=== PATIENT | male | born 1945 | race American Indian/Alaskan Native ===

== ENCOUNTER 2018-04-26 14:02 | Emergency (ER) | payer MEDICARE ==
[2018-04-26 14:20] VITALS: BP 145/89
--- NOTE | 2018-04-26 15:46 | Emergency Department Report ---
Blank Doc - Documentation Documentation: Patient is a 72-year-old -[place] male who is here for INR check. Patient is a visiting from [place] he was previously on Zaroxolyn but it was too expensive and Coumadin 10 mg daily. Patient's physician has asked that we check his INR to see if the patient is continuing to be therapeutic. Patient has no other complaints at this time. INR was checked.
[2018-04-26 16:27] LABS: INR 1.6 (0.87-1.13)
--- NOTE | 2018-04-26 16:58 | Emergency Department Report ---
ED Recheck HPI - General Chief Complaint: Medical Clearance Stated Complaint: BLOOD WORK Time Seen by Provider: 04/26/18 15:18 Source: patient, family Mode of arrival: Ambulatory Limitations: No Limitations - History of Present Illness Initial Comments: This is a 72-year-old patient visiting from out of town here for PT/INR checked. He is on Coumadin 10 mg status post heart attack with stent placement. He is a history of a seat CVA, sleep apnea with CPAP and cardiac bypass surgery. Patient is visiting from [place] and he said he was told by his doctor to get lab check and to call lab results then so he can adjust his Coumadin level. Patient does not have any complaints at this time. MD Complaint: abnormal lab (patient here for PT/INR check.) Initial Visit For: other Returns Today for: other (none here for lab tests) Symptoms Since Prior Visit: no new symptoms Context: other (sent by physician for () Associated Symptoms: none Treatments Prior to Arrival: other (he took Coumadin last night.) - Related Data Allergies Allergy/AdvReac Type Severity Reaction Status Date / Time No Known Allergies Allergy Unverified 04/26/18 14:20 ED Review of Systems ROS: Stated complaint: BLOOD WORK Other details as noted in HPI Constitutional: denies: chills ENT: denies: throat pain Respiratory: denies: cough, shortness of breath, SOB with exertion, SOB at rest , stridor, wheezing Cardiovascular: denies: chest pain, palpitations, dyspnea on exertion, orthopnea , edema, syncope, paroxysmal nocturnal dyspnea Gastrointestinal: denies: abdominal pain, nausea, vomiting, hematemesis, hematochezia Genitourinary: denies: hematuria Musculoskeletal: denies: arthralgia, myalgia Skin: denies: rash Neurological: denies: headache, weakness, numbness, paresthesias, confusion, abnormal gait Hematological/Lymphatic: easy bleeding, easy bruising ED Past Medical Hx - Past Medical History Previous Medical History?: Yes Hx CVA: Yes Hx Heart Attack/AMI: Yes (stents) Additional medical history: sleep apnea, with C-pap - Surgical History Past Surgical History?: Yes Hx Open Heart Surgery: Yes Hx Appendectomy: Yes Additional Surgical History: hemorrhoids,nose fx,right arm FX, gastric bypass for wt loss - Family History Family history: hypertension - Social History Smoking Status: Former Smoker Substance Use Type: Alcohol ED Physical Exam - General Limitations: No Limitations General appearance: alert, in no apparent distress - Head Head exam: Present: atraumatic, normocephalic, normal inspection - Eye Eye exam: Present: normal appearance, PERRL, EOMI Pupils: Present: normal accommodation - ENT ENT exam: Present: normal exam, normal orophraynx, mucous membranes moist, TM's normal bilaterally - Neck Neck exam: Present: normal inspection, full ROM. Absent: tenderness - Respiratory Respiratory exam: Present: normal lung sounds bilaterally. Absent: respiratory distress, chest wall tenderness - Cardiovascular Cardiovascular Exam: Present: regular rate, normal rhythm, normal heart sounds - GI/Abdominal GI/Abdominal exam: Present: soft, normal bowel sounds. Absent: distended, tenderness, organomegaly - Extremities Exam Extremities exam: Present: normal inspection, full ROM, normal capillary refill , other. Absent: tenderness, pedal edema, joint swelling, calf tenderness - Back Exam Back exam: Present: normal inspection, full ROM, other (platelets about any difficulties) - Neurological Exam Neurological exam: Present: alert, oriented X3, normal gait, reflexes normal, other (no focal neurological deficit). Absent: motor sensory deficit - Psychiatric Psychiatric exam: Present: normal affect, normal mood - Skin Skin exam: Present: warm, dry, intact, normal color. Absent: rash ED Course Vital Signs 04/26/18 14:16 Temperature 98.1 F Pulse Rate 65 Respiratory 20 Rate Blood Pressure 145/89 O2 Sat by Pulse 100 Oximetry Vital Signs 04/26/18 14:16 Temperature 98.1 F Pulse Rate 65 Respiratory 20 Rate Blood Pressure 145/89 O2 Sat by Pulse 100 Oximetry - Reevaluation(s) Reevaluation #1: 04/26/18 16:59 Patient is a 72-year-old male here to have PT/INR checked. INR is 1.6 and called into his doctor's office in [place]. I spoke with Veda who is a biomedical specialist and gave her INR level. She instructed me to instruct the patient that Dr. Andrew is in a patient and when he comes out she will let them know and she will call patient to adjust his Coumadin level. Patient instructed that he will be getting a call from Heather biomedical specialist who is very familiar with to instruct him how to adjust his Coumadin based on INR 1.60. ED Recheck MDM - Differential Diagnosis Recheck of Abnormal Lab (patient here to check INR because he is on Coumadin) - Medical Decision Making This is a 72-year-old male visiting from [place] and his doctor instructed him to go to [facility] and [place] to have his INR level checked because he is on Coumadin and this is when he usually gets it checked. Patient has no complaints and is in no pain and denies any bleeding . Patient screened by Dr. White and labs ordered. I examined Patient and his physical exam is normal. INR level is 1.60 and therapeutic level for stroke and cardiac stent placement is usually between 2 and 3. Patient is on 10 mg Coumadin at present it which she took last night. His doctor's office and [place] was called and instructed of INR level and I instructed biomedical specialist the patient came to the ER to get his level checked. She said that the doctors and with the patient as soon as he gets out she will get information on the chest and his Coumadin level and will call him and his personal cell phone to instruct him how to adjust dose. I discussed this with patient and he is in agreement. He has a cell phone with him. Hypocoagulation-INR is 1.60 and therapeutic level needs to be between 2 and 3 status post cardiac stent and CVA in the past. He is on Coumadin and his doctor 's office will be calling him to adjust level Patient voiced understanding of information given and he was discharged from emergency room in stable condition to keep his phone with him because Dr. Andrew's office will be calling them about Coumadin dosage. Critical care attestation.: If time is entered above; I have spent that time in minutes in the direct care of this critically ill patient, excluding procedure time. ED Disposition Clinical Impression: Anticoagulation goal of INR 2 to 3, Hypercoagulable state Disposition: DC-01 TO HOME OR SELFCARE Is pt being admited?: No Does the pt Need Aspirin: No Condition: Stable Instructions: Warfarin (By mouth) Additional Instructions: Please keep your phone on as your doctor will be calling me regarding adjusting the Coumadin dosage Referrals: THERESA BRANTLEY,NELA Aranda [Other] - 24 Hours
== END 2018-04-26 17:23 | disposition home or self-care (01) ==
LOC: ED 14:02
DX: D68.59 Other primary thrombophilia (principal); I25.2 Old myocardial infarction; Z79.01 Long term (current) use of anticoagulants; Z86.73 Personal history of transient ischemic attack (TIA), and cerebral infarction without residual deficits; Z90.89 Acquired absence of other organs; Z98.890 Other specified postprocedural states
CPT/HCPCS: 36415; 85610; 99283